=== PATIENT | male | born 1955 | race Caucasian/White ===

== ENCOUNTER → 2016-06-14 05:50 | Day surgery (SDC) | payer BC ==
--- NOTE | 2016-06-13 15:57 | HP ---
CONTINUATION ADDENDUM INCLUDED ON THIS REPORT DATE OF ADMISSION: 06/14/2016. CHIEF COMPLAINT: Right knee pain. HISTORY OF PRESENT ILLNESS: Mr. 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 Since that time, he has had 7/10 pain and swelling along the medial joint line of his right knee. He failed conservative treatment with intra-articular injection and physical therapy, as well as pain medication. MRI confirmed a large tear in the body and posterior horn of the medial meniscus. Due to the patient's continued pain, he wished to proceed with right knee arthroscopy with partial medial meniscectomy, possible chondroplasty, possible synovectomy. PAST MEDICAL HISTORY: Hypertension, past calcaneal fracture. PAST SURGICAL HISTORY: ORIF 2002 of the calcaneus fracture. CURRENT MEDICATIONS: 1. Lisinopril 10 mg p.o. daily. 2. Lortab one to two tablets p.o. q.6 hours prn for pain. ALLERGIES: No known drug allergy, no known latex allergy. FAMILY HISTORY: Paternal cancer. SOCIAL HISTORY: Patient lives with his . No tobacco or recreational drug use. Ten to twelve alcoholic beverages per week. REVIEW OF SYSTEMS: Fourteen systems were reviewed with the patient today. Positive for right knee pain and swelling. Negative for fevers, chills, chest pain, shortness of breath, nausea, vomiting, headache or dizziness. Otherwise review of systems is negative or not relevant. PHYSICAL EXAMINATION GENERAL: The patient is a well-nourished male in no apparent distress. Alert and oriented times three. Pleasant mood and appropriate affect. VITAL SIGNS: Height 5'11-1/2", weight 249 pounds, BMI 34.2. Pulse 70, blood pressure 158/92. GAIT: The patient's gait is antalgic favoring the right knee. He ambulates independently. HEENT: Atraumatic, normocephalic. Pupils equal and reactive to light. NECK: Trachea midline. Neck supple. No palpable lymph nodes. LUNGS: Clear to auscultation in all lung cortés. No wheezes, rub, or rhonchi. HEART: S1, S2. ABDOMEN: Soft, nontender, nondistended. Bowel sounds in four quadrants. EXTREMITIES: Right lower extremity: The patient's skin is intact. He has a moderate effusion at the knee joint with tenderness to palpation along the medial joint line. Positive Apley's and Beni's. 10 to 120 degrees of flexion distally. Neurovascularly intact. RADIOGRAPHS: MRI of the patient's right knee shows a tear in the body and posterior horn of the medial meniscus. Plain films of the right knee show some mild to moderate degenerative osteoarthritis. ASSESSMENT AND PLAN: Mr. De Paz is a 61-year-old gentleman scheduled for upcoming, 06/14/2016, right knee arthroscopy with partial medial meniscectomy and possible chondroplasty. He will be NPO after midnight the night before surgery. He is medically cleared for surgery. No recent illness. We shall proceed with this surgery as scheduled. Informed consent was obtained from the patient today and he wishes to proceed. [id number]/[facility] #: [id number]/[facility] #: [id number] SANTOS
--- NOTE | 2016-06-13 16:05 | HP ---
DATE OF ADMISSION: 06/14/2016. PHYSICAL EXAMINATION GAIT: The patient's gait is antalgic favoring the right knee. He ambulates independently. HEENT: Atraumatic, normocephalic. Pupils equal and reactive to light. NECK: Trachea midline. Neck supple. No palpable lymph nodes. LUNGS: Clear to auscultation in all lung cortés. No wheezes, rub, or rhonchi. HEART: S1, S2. ABDOMEN: Soft, nontender, nondistended. Bowel sounds in four quadrants. EXTREMITIES: Right lower extremity: The patient's skin is intact. He has a moderate effusion at t he knee joint with tenderness to palpation along the medial joint line. Positive Apley's and McMurr ay's. 10 to 120 degrees of flexion distally. Neurovascularly intact. RADIOGRAPHS: MRI of the patient's right knee shows a tear in the body and posterior horn of the med ial meniscus. Plain films of the right knee show some mild to moderate degenerative osteoarthritis. ASSESSMENT AND PLAN: Mr. De Paz is a 61-year-old gentleman scheduled for upcoming, 06/14/2016, [facility] knee arthroscopy with partial medial meniscectomy and possible chondroplasty. He will be NPO af ter midnight the night before surgery. He is medically cleared for surgery. No recent illness. We shall proceed with this surgery as scheduled. Informed consent was obtained from the patient doretha edmonds and he wishes to proceed. [id number]/[facility] #: [id number]
--- NOTE | 2016-06-13 19:55 | HP ---
HISTORY AND PHYSICAL: DATE OF PROCEDURE: 06/14/16 CHIEF COMPLAINT: Right knee pain. HISTORY OF PRESENT ILLNESS: Mr. De Paz is a 61-year-old gentleman with complaints of right knee pain. He has failed conservative management and he has elected to proceed with a right knee arthroscopy with partial medial meniscectomy and possible chondroplasty. Surgery is scheduled for 06/14/[address] Duran. PAST MEDICAL HISTORY: Hypertension, obesity. PAST SURGICAL HISTORY: ORIF of calcaneal fracture. CURRENT MEDICATIONS: 1. Meloxicam. 2. Lortab. 3. Lisinopril. ALLERGIES: None. FAMILY HISTORY: Cancer. SOCIAL HISTORY: This is a 61-year-old gentleman. He does not smoke. He denies use of drugs or alcohol. REVIEW OF SYSTEMS: A complete 14-point review of systems is reviewed with the patient, all is negative and noncontributory. PHYSICAL EXAMINATION GENERAL: He is a 61-year-old obese male, in no acute distress. VITAL SIGNS: He stands 6 feet 1 inch tall, weighs 250 pounds. His blood pressure is 158/92 and his heart rate is 70. HEENT: Normocephalic, atraumatic. NECK: Supple. No palpable lymph nodes. Trachea is midline. PULMONARY: The lungs are clear to auscultation bilaterally. No wheezes, rhonchi, or rales. CARDIOLOGIC: Regular rate and rhythm. Strong S1, S2. No murmurs, gallops, or rubs. ABDOMEN: Soft, nontender, nondistended. NEUROLOGIC: He is alert and oriented x3. MUSCULOSKELETAL: Right lower extremity, the skin is intact. He has a mild effusion. He has some tenderness over the medial joint line. His lower extremity muscle group strengths are intact at 5/5. He has intact sensation. He has 2+ dorsalis pedis pulses. ASSESSMENT AND PLAN: Mr. De Paz is a 61-year-old gentleman with complaints of right knee pain. He is scheduled for right knee arthroscopy with partial medial meniscectomy and possible chondroplasty. The surgery is scheduled for with Dr. Duran. Dr. Duran discussed the risks and benefits of the surgery with him today and all of his questions were answered. He will follow up with Dr. Duran 10 to 14 days after the surgery. DARYA BULLARD [id number]/[facility] #: [id number] [facility] HOSPITALAnoop
[~2016-06-14 05:50] MED LIST: Buffered Lidocaine 1% SYR 3ML* 3 ML/SYR SYRINGE INTRADERM ONE; Bupivacaine 0.5% SDV PF* 30 ML VIAL ONE; Chloroprocaine 2%* 20 ML VIAL ONE; Dexamethasone IV* 4 MG/ML 1 ML (4 MG) ONE; EPINEPHrine AMP 1 MG/ML ONE; Famotidine IV* 10 MG/ML 2 ML (20 mg) IV ONE; Famotidine IV* 10 MG/ML 2 ML (20 mg) ONE; Ketorolac INJ* 30 MG/ML 1 ML VIAL ONE; Lidocaine 2% PF * 5 ML VIAL ONE; Midazolam* 1 MG/ML 2 ML VIAL (2 MG) ONE; Midazolam* 1 MG/ML 5 ML VIAL (5 MG) ONE; Morphine INJ* 2 MG/ML 1 ML CARPUJECT IV PRN; Ondansetron INJ* 2 MG/ML VIAL ONE; PROCHLORPERAZINE INJ 5 MG/ML 2 ML VIAL IV PRN; Phenylephrine INJ* 10 MG/ML 1 ML VIAL (10 MG) ONE; Propofol* 10 MG/ML 20 ML BTL IV PUSH ONE; ceFAZolin 2 GM PREMIX (*) 2 GM/50 ML BAG IVPB ONE; fentaNYL* 50 MCG/ML 2 ML VIAL (100 MCG VIAL) ONE; methylPREDNISolone ACETATE 80* 80 MG/ML 1 ML VIAL ONE; oxyCODONE/Acetamin 5/325 MG* TAB ONE; oxyCODONE/Acetamin 5/325 MG* TAB PO PRN
[2016-06-14] MEDS: fentaNYL* 50 MCG/ML 2 ML VIAL (100 MCG VIAL) IV PRN ×3 (09:10→09:28)
[2016-06-14 10:04] VITALS: BP 159/89
--- NOTE | 2016-06-15 01:55 | OP ---
DATE OF OPERATION: 06/14/16 [facility] DATE OF : 57 ATTENDING SURGEON: Constanza Duran MD DIRECTOR TRUST: DARYA Beck ANESTHESIOLOGIST: Dr. Sy. ANESTHESIA: Spinal. PRE-OP DIAGNOSES: Right knee pain with medial meniscal tear and mild osteoarthritis. POST-OP DIAGNOSES: Right knee pain with medial meniscal tear and mild osteoarthritis. OPERATIVE PROCEDURE: Right knee arthroscopy with partial medial meniscectomy and medial chondroplasty. COMPLICATIONS: None. SPECIMEN: None. EBL: Less than 25 cc. BRIEF HISTORY/INDICATION: Mr. De Paz is a 61-year-old gentleman with greater than 4 months of severe right knee pain. He had MRI confirming a medial meniscal tear and he failed conservative treatment. He had some known mild arthritis on radiographs as well, but wished to proceed with right knee arthroscopy with partial medial meniscectomy due to continued pain and decreased quality of life. Informed consent was obtained from the patient. He understood the risks of the procedure included but were not limited to bleeding, infection, damage to nearby structures, continued pain, need for further surgery, stroke, heart attack, blood clot, and . He wished to proceed. INTRAOPERATIVE FINDINGS: Intraoperatively, the patient was noted to have a complex tear involving the posterior one-third of the medial meniscus. This involved the white-red zone mainly. The patient had some grade 2 and 3 Outerbridge cartilage changes in the medial compartment along the medial femoral condyle with cartilage flapping. Some mild grade 1 and 2 cartilage changes in the patellofemoral compartment. DESCRIPTION OF PROCEDURE: Mr. De Paz was identified in the preanesthesia unit. His right lower extremity was marked as the correct operative site. Informed consent was signed and placed in the chart. The patient was taken to the operating room and placed under spinal anesthesia without difficulty. Right lower extremity was prepped and draped in the usual sterile fashion. Preop time-out was made to correctly identify the patient's side and site. Appropriate cornelius-operative antibiotics were given within 1 hour of incision. A standard 1.5 cm anterolateral portal incision was made with a 15-blade and carried down through the capsule. Trocar was introduced. As soon as the light and water sources were turned on, there was immediate visualization of the supra -patellar pouch. A tour of the knee joint was performed. Suprapatellar pouch had no obvious abnormality. Patellofemoral compartment had very mild degenerative changes with no cartilage flapping and no exposed subchondral bone. Medial gutters showed no loose body or plica. The medial compartment showed some mild cartilage flapping with grade 2 and 3 cartilage changes along the medial femoral condyle. Posterior medial meniscus had obvious tearing. ACL appeared to be intact. The knee was placed in the [id number] position. Lateral compartment showed no significant cartilage damage or meniscal tear. Under direct visualization, a medial portal incision was made with a 15-blade. Probe was introduced and a second tour of the knee joint was performed. Posteromedial meniscus had a complex-type tear with both radial and longitudinal component involving the white-red zone. Shaver and straight biter were used to perform partial medial meniscectomy. This was performed mainly in the white-red zone. Radiofrequency ablation wand was then used to further smooth the edge of the posteromedial meniscus. Probe was used to ensure that there was no additional tearing. Next, the radiofrequency ablation wand was used to smooth the edges of the cartilage flapping along the medial femoral condyle. The knee was copiously irrigated with sterile saline. All instruments were carefully removed. The incisions were closed using interrupted 3-0 nylon suture. Intra-articular injection of 80 mg Depo-Medrol and 6 cc of 0.25% Marcaine was placed in the knee joint. Sterile Xeroform, 4x4's, and Webril were used to cover the incisions. Fitz wrap and cold pack were placed over this. The patient's anesthesia was reversed without difficulty. He was taken to the PACU in stable condition. Intended weightbearing will be weightbearing as tolerated. Intended DVT prophylaxis will be aspirin for two weeks. [id number]/[facility] #: [id number] [facility]ITALD
== END | disposition home or self-care (01) ==
LOC: OR 05:50
PROVIDERS: ATTEND Orthopaedic Surgery Adult Reconstructive Orthopaedic Surgery
DX: M23.203 Derangement of unspecified medial meniscus due to old tear or injury, right knee (principal); M17.11 Unilateral primary osteoarthritis, right knee; I10 Essential (primary) hypertension
CPT/HCPCS: A9270-GY; J0171; J0690; J1040; J1100; J1885; J2250; J2400; J2405; J2704; J3010

== ENCOUNTER 2018-08-07 05:32 | Observation (INO) | payer BC ==
[~2018-08-07 05:32] MED LIST changes: -Buffered Lidocaine 1% SYR 3ML* 3 ML/SYR SYRINGE INTRADERM ONE; +Buffered Lidocaine 1% SYRIN* 1 ML/SYRINGE INTRADERM ONE; -Bupivacaine 0.5% SDV PF* 30 ML VIAL ONE; -Chloroprocaine 2%* 20 ML VIAL ONE; -Dexamethasone IV* 4 MG/ML 1 ML (4 MG) ONE; -EPINEPHrine AMP 1 MG/ML ONE; -Famotidine IV* 10 MG/ML 2 ML (20 mg) IV ONE; -Famotidine IV* 10 MG/ML 2 ML (20 mg) ONE; -Ketorolac INJ* 30 MG/ML 1 ML VIAL ONE; -Lidocaine 2% PF * 5 ML VIAL ONE; -Midazolam* 1 MG/ML 2 ML VIAL (2 MG) ONE; -Midazolam* 1 MG/ML 5 ML VIAL (5 MG) ONE; -Morphine INJ* 2 MG/ML 1 ML CARPUJECT IV PRN; -Ondansetron INJ* 2 MG/ML VIAL ONE; -PROCHLORPERAZINE INJ 5 MG/ML 2 ML VIAL IV PRN; -Phenylephrine INJ* 10 MG/ML 1 ML VIAL (10 MG) ONE; -Propofol* 10 MG/ML 20 ML BTL IV PUSH ONE; -ceFAZolin 2 GM PREMIX (*) 2 GM/50 ML BAG IVPB ONE; -fentaNYL* 50 MCG/ML 2 ML VIAL (100 MCG VIAL) ONE; -methylPREDNISolone ACETATE 80* 80 MG/ML 1 ML VIAL ONE; -oxyCODONE/Acetamin 5/325 MG* TAB ONE; -oxyCODONE/Acetamin 5/325 MG* TAB PO PRN
[2018-08-07] MEDS ORDERED: Lactated Ringers 1000 ML Bag* 1,000 ML IV SCH ×2 (06:00→11:00)
[2018-08-07] MEDS ORDERED: Famotidine IV* 10 MG/ML 2 ML (20 mg) IV ONE (06:00)
[2018-08-07] MEDS ORDERED: ceFAZolin 2 GM in NS PREMIX(*) 2 GM/100 ML BAG IVPB ONE (06:02)
[2018-08-07] MEDS ORDERED: Famotidine IV* 10 MG/ML 2 ML (20 mg) ONE (06:02)
[2018-08-07] MEDS ORDERED: Midazolam* 1 MG/ML 5 ML VIAL (5 MG) ONE (07:15)
[2018-08-07] MEDS ORDERED: Ondansetron INJ* 2 MG/ML VIAL ONE (07:15)
[2018-08-07] MEDS ORDERED: Dexamethasone IV* 4 MG/ML 1 ML (4 MG) ONE (07:15)
[2018-08-07] MEDS ORDERED: Propofol* 10 MG/ML 20 ML BTL ONE (07:15)
[2018-08-07] MEDS ORDERED: fentaNYL* 50 MCG/ML 5 ML VIAL (250 MCG VIAL) ONE (07:15)
[2018-08-07] MEDS ORDERED: Lidocaine 2% PF * 5 ML VIAL ONE (07:15)
[2018-08-07] MEDS ORDERED: Cisatracurium* 2 MG/ML MDV 5 ML ONE (07:15)
[2018-08-07] MEDS ORDERED: EPHEDrine (Pressors)* 50 MG/ML VIAL ONE (08:22)
[2018-08-07] MEDS ORDERED: Phenylephrine 40 MCG/ML SYRINGE ONE (08:26)
[2018-08-07] MEDS ORDERED: VASOPRESSIN 20 UNITS/ML 1 ML VIAL ONE (08:55)
[2018-08-07] MEDS ORDERED: HYDROmorphone INJ1* 1 MG/ML SYRINGE ONE (09:41)
[2018-08-07] MEDS ORDERED: Ondansetron INJ* 2 MG/ML VIAL IV PRN ×2 (10:12→10:20)
[2018-08-07] MEDS ORDERED: HYDROmorphone INJ1* 1 MG/ML SYRINGE IV PRN (10:12)
[2018-08-07] MEDS ORDERED: Naloxone* 0.4 MG/ML 1 ML VIAL IV PRN (10:12)
[2018-08-07] MEDS ORDERED: Acetaminophen TAB* 325 MG PO PRN (10:20)
[2018-08-07] MEDS ORDERED: Magnesium Hydroxide LIQ* 30 ML UDC PO PRN (10:20)
[2018-08-07] MEDS ORDERED: fentaNYL* 50 MCG/ML 2 ML VIAL (100 MCG VIAL) ONE (10:22)
[2018-08-07] MEDS: fentaNYL* 50 MCG/ML 2 ML VIAL (100 MCG VIAL) IV PRN ×2 (10:23→10:57)
[2018-08-07] MEDS ORDERED: Cyclobenzaprine TAB* 10 MG PO PRN (11:23)
[2018-08-07] MEDS ORDERED: HYDROcodone/ACETAMIN 5-325 MG* 1 TAB ONE (11:35)
[2018-08-07] MEDS: HYDROcodone/ACETAMIN 5-325 MG* 1 TAB PO PRN ×3 (11:36→20:06)
[2018-08-07] MEDS ORDERED: Lisinopril TAB* 5 MG PO SCH (21:00)
--- NOTE | 2018-08-07 21:24 | OP ---
DATE OF OPERATION: 08/07/18 - ROOM #353 DATE OF : 57 SURGEON: Ilir Licea MD HEALTH MANAGER: DARYA Foote. The case was done with the assistance of a surgical PA because of the complexity of the case. ANESTHESIA: General. PRE-OP DIAGNOSES: 1. Right L4-5 herniated nucleus pulposus. 2. Footdrop. POST-OP DIAGNOSES: 1. Right L4-5 herniated nucleus pulposus. 2. Footdrop. OPERATIVE PROCEDURE: The patient underwent right L4-5 MIS diskectomy with facetectomy and partial laminotomy L4 and L5. ESTIMATED BLOOD LOSS: 15 mL. COMPLICATIONS: None. SUMMARY: The patient is very pleasant 63-year-old gentleman with complaints of back pain radiating to the right lower extremity with right lower extremity weakness and footdrop with MRI findings consistent with a large right L4-5 extruded disk herniation. After failing conservative treatment modalities, he was offered the option of surgical intervention. After explaining expectations , limitations, and possible complications of the procedure to the patient and his with complications including, but not limited to bleeding, infection, risk of injury to adjacent structures, coma, paralysis, , need for additional procedures, anesthesia risks, stroke, blindness, cancer, instability , adjacent level disease, pseudoarthrosis, spinal fluid leak, injury to abdominal content, loss of bladder or bowel control, recurrence of the herniated disk, inability to improve, need for additional procedures, need for tracheostomy or gastrotomy, need for prolonged ICU stay, scar formation, the patient was agreeable to proceed with surgery and informed consent was obtained. The patient and his understood that his condition may not improve and in fact may get worse after surgery and that he may need additional procedure in the future. They also understood that the operative plan may be modified according to intraoperative findings and conditions and that the procedure may be abandoned or done in more than 1 stages. They also understood the possibility for need of prolonged ICU stay and need for tracheostomy or gastrostomy or ventilator dependence. DESCRIPTION OF PROCEDURE: The patient was brought to the operating room and was placed under general anesthesia by the anesthesia team. He was carefully positioned prone on the Iker frame on the Saran table and all bony prominences were meticulously padded. The skin was prepped and draped in the standard fashion. After appropriate surgical pause and patient identification, a small paramedian incision on the right over the L4-5 disk space was marked on the skin with the assistance of intraoperative fluoroscopic imaging. The skin incision site was infiltrated with local anesthetic. A #10 surgical blade was used to incise the skin. The incision was carried down with Bovie cautery and the dorsal fascia was incised with #10 surgical blade. Then, over a series of dilators, the tubular METRx retractor was introduced and was docked over the right L4 hemilamina and the L4-5 facet exposing the superior part of the L5 lamina. Operative microscope was brought into the field, and after exposing all the bony surfaces carefully, high-speed drill and Kerrison punches were used to fashion partial laminectomy at L4 and L5 as well as partial medial facetectomy. The ligamentum flavum was gently removed with the use of Kerrison punches and the thecal sac as well as the L5 nerve root were readily identified. The thecal sac was gently retracted medially with nerve root retractor and large bulging under the posterior longitudinal ligament was identified as expected from the preoperative imaging. A #15 surgical blade was used to perform a small opening at the posterior longitudinal ligament and significant amount of disk material was then gently removed with the use of pituitary rongeurs. At the end of the procedure, the thecal sac and the nerve root were free of any pressure phenomenon. Intraoperative fluoroscopic imaging confirmed appropriate surgical level. While the disk at L4-5 was meticulously inspected, no further disk protrusions were identified, and after copious irrigation, confirmation of meticulous hemostasis and meticulous inspection, the tubular retractor was gently removed. The wound was then closed by layers with 0 interrupted Vicryl suture to approximate the dorsal fascia and 2-0 inverted interrupted Vicryl sutures to approximate the subcutaneous tissues. The skin was then covered with Dermabond. At the end of the procedure, all counts were reported to be correct. The patient remained hemodynamically stable throughout the case. He was then turned supine, extubated and was transferred to Recovery in excellent condition. The case was done with the assistance of a surgical PA. [id number]/[facility] #: [id number] SANTOS
[2018-08-08] MEDS: HYDROcodone/ACETAMIN 5-325 MG* 1 TAB PO PRN ×2 (03:01→07:29)
--- NOTE | 2018-08-08 07:38 | PN ---
Progress Note - Progress Note Date of Service: 08/08/18 SOAP: Subjective: [S/p lumbar discectomy L4-5 right POD #1 Feeling well this morning, pre-op RLE pain improved. Right lateral foot numbness persistent Ambulating well independently Eating and drinking well Denies headache, nausea Pain well controlled with PO meds] Objective: [ Vital Signs: Temp Pulse Resp BP Pulse Ox 99.5 F 65 16 140/68 98 08/08/18 03:08 08/08/18 03:08 08/08/18 07:29 08/08/18 03:08 08/08/18 03:08 General: Alert, comfortable supine in bed Neuro: Mild right lateral foot numbness, right EHL 4/5 but possibly secondary to previous foot surgery Incision: Intact, no swelling, erythema ] Assessment: [Satisfactory post-op] Plan: [1. Discharge home today 2. Discharge instructions discussed]
[2018-08-08 07:59] VITALS: BP 146/66
[2018-08-08] MEDS ORDERED: Atorvastatin* 10 MG TAB PO SCH (09:00)
--- NOTE | 2018-08-08 22:25 | DS ---
DISCHARGE SUMMARY: DATE OF ADMISSION: 08/07/18 DATE OF DISCHARGE: 08/08/18 ADMISSION DIAGNOSES: 1. Degenerative disk disease. 2. Herniated nucleus pulposus. DISCHARGE DIAGNOSES: 1. Degenerative disk disease. 2. Herniated nucleus pulposus. PROCEDURE: The patient underwent a right L4-5 MIS diskectomy with facetectomy and partial laminotomy L4 and L5. DISPOSITION: Home. CONDITION AT DISCHARGE: Good. HOSPITAL COURSE: The patient is a very pleasant 63-year-old gentleman with complaints of back pain r adiating to the right lower extremity with right lower extremity weakness and right footdrop with MRI findings consistent with a large right L4-5 extruded disk fragment. After failing conservative moises tment modalities, he was offered the option of surgical intervention. He underwent the above procedu re. He tolerated the procedure well. He was able to be extubated and was transferred to the floor. On postoperative day #1, the patient was able to tolerate p.o. He was ambulating and had good pain c ontrol with p.o. medication while his preoperative symptoms have almost completely resolved. He was found to be ready for discharge home. Full instructions were given. [id number]/[facility] #: [id number]
== END 2018-08-08 10:42 | disposition home or self-care (01) ==
LOC: OR 05:32 → SSU 10:21
PROVIDERS: ADMIT Neurological Surgery; ATTEND Neurological Surgery
DX: M51.26 Other intervertebral disc displacement, lumbar region (principal); M51.16 Intervertebral disc disorders with radiculopathy, lumbar region; M21.379 Foot drop, unspecified foot; M79.661 Pain in right lower leg
CPT/HCPCS: 76000; 96374; 96375; 96376; A9270-GY; G0378; J0690; J1100; J1170; J2250; J2405; J2704; J3010

== ENCOUNTER → 2018-10-16 13:49 | Day surgery (SDC) | payer BC ==
[~2018-10-16 13:49] MED LIST changes: +Bupivacaine 0.5%* 50 ML VIAL ONE; +Dexamethasone IV* 4 MG/ML 1 ML (4 MG) ONE; +EPHEDrine (Pressors)* 50 MG/ML VIAL ONE; +Famotidine IV* 10 MG/ML 2 ML (20 mg) IV ONE; +Famotidine IV* 10 MG/ML 2 ML (20 mg) ONE; +Ketorolac INJ* 30 MG/ML 1 ML VIAL ONE; +Lactated Ringers 1000 ML Bag* 1,000 ML IV SCH; +Lidocaine 2% PF * 5 ML VIAL ONE; +Midazolam* 1 MG/ML 5 ML VIAL (5 MG) ONE; +Naloxone* 0.4 MG/ML 1 ML VIAL IV PRN; +Ondansetron INJ* 2 MG/ML VIAL IV PRN; +Ondansetron INJ* 2 MG/ML VIAL ONE; +Propofol* 10 MG/ML 20 ML BTL ONE; +Vancomycin(*) 1,500 MG in NS 0.9% 250 ML* 250 ML IVPB ONE; +fentaNYL* 50 MCG/ML 2 ML VIAL (100 MCG VIAL) IV PRN; +fentaNYL* 50 MCG/ML 2 ML VIAL (100 MCG VIAL) ONE; +oxyCODONE/Acetamin 5/325 MG* TAB ONE; +oxyCODONE/Acetamin 5/325 MG* TAB PO PRN
--- NOTE | 2018-10-16 16:03 | HP ---
PREOPERATIVE HISTORY AND PHYSICAL: DATE OF SURGERY/ADMISSION: 10/16/18 DATE OF OFFICE VISIT/ENCOUNTER: 10/16/18 ATTENDING SURGEON: Savannah Jesus MD* (dictated by DARYA Kwok). PROCEDURE: Incision and drainage, olecranon bursectomy, left elbow. HISTORY OF PRESENT ILLNESS: This is a 63-year-old male who has had painful lump /olecranon bursitis on the posterior aspect of his left elbow, ongoing for a couple of weeks. He has had a long history of olecranon bursitis. There was no injury that he recalls. He was seen in the office by Dr. Jesus approximately 1 week ago and started on a course of Keflex. He was also wearing a compression ARDEN. Unfortunately, his symptoms have worsened over the past week. He is feeling an increase in pain along with swelling and erythema. He has also had some swelling travel down to his hand. He is experiencing decreased range of motion in his elbow secondary to the pain. He denies any fevers. In addition to a history of olecranon bursitis in his elbow, he has a history of gout for which he takes allopurinol. After evaluation in clinic today, Dr. Jesus is recommending surgical intervention in the form of an incision and drainage and olecranon bursectomy for the left elbow. The patient has consented to proceed. PAST MEDICAL HISTORY: 1. Hypertension. 2. Hypercholesterolemia. 3. Gout. PAST SURGICAL HISTORY: 1. Spine surgery, lumbar diskectomy. 2. Right knee surgery. 3. Right heel open reduction internal fixation. CURRENT MEDICATIONS: 1. Allopurinol 300 mg daily. 2. Lisinopril 10 mg daily. 3. Rosuvastatin calcium 5 mg daily. ALLERGIES: No known drug allergies. FAMILY MEDICAL HISTORY: Cancer. 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 He denies tobacco use and recreational drug use. He has previously drank alcohol with some regularity, but he has not in approximately 3 months. REVIEW OF SYSTEMS: Negative for general, cephalic, cardiovascular, respiratory , GI, , other musculoskeletal, integumentary, endocrine, neurologic, and hematologic symptoms. Infectious Disease: Negative for MRSA, hepatitis C, HIV. PHYSICAL EXAMINATION GENERAL: Well-developed, well-nourished 63-year-old male, in no acute distress. VITAL SIGNS: Height 5 feet 11 inches, weight 206 pounds, blood pressure 142/82 , and pulse rate 67. HEENT: Normocephalic, atraumatic. Pupils are equal, round and reactive to light and accommodation. Extraocular movements are intact. NECK: Supple. No palpable lymph nodes. Throat is clear. PULMONARY: Lungs are clear to auscultation bilaterally. No wheezes, rales or rhonchi. CARDIOVASCULAR: Regular rate and rhythm. S1, S2. No murmurs, rubs or gallops. No edema. ABDOMEN: Positive bowel sounds. Soft and nontender. MUSCULOSKELETAL: On exam of his left elbow, he has a large olecranon bursitis and decreased range of motion of the elbow in both flexion and extension. There is some swelling in his hand. The erythema from posterior aspect of his elbow extending laterally. There is mild warmth to the touch. Skin is intact. Neurovascular function is intact to the left upper extremity. NEUROLOGIC: Alert and oriented x3. Cranial nerves II through XII are intact. Sensation is intact to light touch. DIAGNOSTIC STUDIES/LAB DATA: X-rays of the left elbow show a large olecranon spur. IMPRESSION: Left olecranon bursitis which is infected. PLAN: The patient is scheduled to undergo an incision and drainage, olecranon bursectomy of left elbow with Dr. Jesus on 10/16/18. He will return to the office 4 days for followup and drain removal. A prescription for [place] was e- scribed to the patient's pharmacy for postoperative pain management. DARYA KWOK [id number]/[facility] #: [id number] [facility]ANTOS
[2018-10-16 19:09] VITALS: BP 150/84
--- NOTE | 2018-10-16 21:50 | OP ---
DATE OF OPERATION: 10/16/18 - [facility] DATE OF : 57 SURGEON: Savannah Jesus MD NET APPLICATIONS DEVELOPER: DARYA Bragg ANESTHESIA: General. PRE-OP DIAGNOSIS: Septic olecranon bursitis of the left elbow. POST-OP DIAGNOSIS: Gouty tophus, left elbow. OPERATIVE PROCEDURE: Removed gouty tophus and I and D of the left elbow. ESTIMATED BLOOD LOSS: Zero. TOURNIQUET TIME: 34 minutes. INDICATION FOR PROCEDURE: Man is a 63-year-old man who has persistent left elbow pain and swelling for the past week, it did not respond to oral antibiotics. He presents for I and D of the left elbow. OPERATIVE FINDINGS: The patient was found to have a large gouty tophus, which was inflamed, but there was no purulent material. The gouty tophus was removed. DESCRIPTION OF PROCEDURE: The patient was brought to the operating room, was given a general anesthetic and placed in the supine position on the operating table with a tourniquet around his left upper arm. Skin of his left upper extremity was prepped and draped in the usual sterile fashion. The upper extremity was exsanguinated and the tourniquet elevated to 250 mmHg. A longitudinal incision was made slightly lateral on the posterior aspect of the elbow overlying the mass. We dissected through the subcutaneous tissue, carefully elevating the skin flaps away from the mass. It appeared to be a gouty tophus. There was no purulent material. We carefully dissected off of the distal ulna. There was a large osteophyte and this was removed with a rongeur. The wound was irrigated copiously with saline and the subcutaneous tissue was closed over a Gurwinder drain with 2-0 Vicryl suture. The skin edges were reapproximated with roz. The wound was dressed with Xeroform, 4x4, ABD , and an Fitz wrap. The patient tolerated the procedure well and was brought to the recovery room in good condition. [id number]/[facility] #: [id number] [facility]
== END | disposition home or self-care (01) ==
LOC: OR 13:49
PROVIDERS: ATTEND Orthopaedic Surgery
DX: M1A.0221 Idiopathic chronic gout, left elbow, with tophus (tophi) (principal); M25.722 Osteophyte, left elbow; I10 Essential (primary) hypertension
CPT/HCPCS: 88304; A9270-GY; J1100; J1885; J2250; J2405; J2704; J3010; J3370; J3490

== ENCOUNTER 2020-06-21 06:31 | Inpatient (IN) ==
[~2020-06-21 06:31] MED LIST changes: +Buffered Lidocaine 1% SYRIN 1 ml INTRADERM ONE; -Buffered Lidocaine 1% SYRIN* 1 ML/SYRINGE INTRADERM ONE; -Bupivacaine 0.5%* 50 ML VIAL ONE; +Dexamethasone IV 4 MG/ML VIAL 1 ml VIAL IV SLOW PU ONE; -Dexamethasone IV* 4 MG/ML 1 ML (4 MG) ONE; -EPHEDrine (Pressors)* 50 MG/ML VIAL ONE; +Famotidine IV 10 MG/ML 2 ml VIAL (20 mg) IV ONE; -Famotidine IV* 10 MG/ML 2 ML (20 mg) IV ONE; -Famotidine IV* 10 MG/ML 2 ML (20 mg) ONE; -Ketorolac INJ* 30 MG/ML 1 ML VIAL ONE; -Lactated Ringers 1000 ML Bag* 1,000 ML IV SCH; +Lactated Ringers 1000 ml BAG 1,000 ML IV SCH; -Lidocaine 2% PF * 5 ML VIAL ONE; -Midazolam* 1 MG/ML 5 ML VIAL (5 MG) ONE; -Naloxone* 0.4 MG/ML 1 ML VIAL IV PRN; -Ondansetron INJ* 2 MG/ML VIAL IV PRN; -Ondansetron INJ* 2 MG/ML VIAL ONE; -Propofol* 10 MG/ML 20 ML BTL ONE; -Vancomycin(*) 1,500 MG in NS 0.9% 250 ML* 250 ML IVPB ONE; -fentaNYL* 50 MCG/ML 2 ML VIAL (100 MCG VIAL) IV PRN; -fentaNYL* 50 MCG/ML 2 ML VIAL (100 MCG VIAL) ONE; -oxyCODONE/Acetamin 5/325 MG* TAB ONE; -oxyCODONE/Acetamin 5/325 MG* TAB PO PRN
[2020-06-21] MEDS ORDERED: Famotidine IV 10 MG/ML 2 ml VIAL (20 mg) ONE (07:00)
[2020-06-21] MEDS ORDERED: ceFAZolin 2 GM PREMIX 2 GM/50 ML BAG ONE (07:00)
[2020-06-21] MEDS ORDERED: Dexamethasone IV 4 MG/ML VIAL 1 ml VIAL ONE (07:00)
[2020-06-21] MEDS ORDERED: Midazolam 5 mg/5 ml VIAL 1 mg/ml 5 ml VIAL (5 mg) ONE (07:09)
[2020-06-21] MEDS ORDERED: Bupivacaine 0.5% SDV PF 30ML VIAL ONE (07:14)
[2020-06-21] MEDS ORDERED: ROPIVACAINE 5 MG/ML 30 ML BTL (0.5%) ONE (07:21)
[2020-06-21] MEDS ORDERED: fentaNYL 100 mcg/2 ml 50 MCG/ML VIAL ONE ×2 (07:26→12:10)
[2020-06-21] MEDS ORDERED: fentaNYL 100 mcg/2 ml 50 MCG/ML VIAL IV PRN (07:59)
[2020-06-21] MEDS ORDERED: HYDROmorphone 1 MG/1 ML SYRINGE IV PRN (07:59)
[2020-06-21] MEDS ORDERED: Naloxone 0.4 mg VIAL 0.4 mg/ml 1 ml VIAL IV PRN (07:59)
[2020-06-21] MEDS ORDERED: DiMENhydriNATE IV 50 mg/ml 1 ml VIAL IV PUSH PRN (07:59)
[2020-06-21] MEDS ORDERED: Phenylephrine IV 10 MG/ML 1 ml VIAL ONE (09:00)
[2020-06-21] MEDS ORDERED: Propofol 10 MG/ML 20 ML BTL ONE ×5 (09:00→11:14)
[2020-06-21] MEDS ORDERED: Ondansetron 4 mg VIAL 2 MG/ML 2 ml VIAL ONE (09:00)
[2020-06-21] MEDS ORDERED: Magnesium Hydroxide LIQ 30 ML UDC PO PRN (09:42)
[2020-06-21] MEDS ORDERED: Ondansetron 4 mg VIAL 2 MG/ML 2 ml VIAL IV PRN (09:42)
[2020-06-21] MEDS ORDERED: Lactulose 30 ml UDC PO PRN (09:42)
[2020-06-21] MEDS ORDERED: Ondansetron ODT 4 mg TAB 4 MG TAB PO PRN (09:42)
[2020-06-21] MEDS ORDERED: oxyCODONE/Acetamin 5/325 mg TAB PO PRN (09:42)
[2020-06-21] MEDS ORDERED: Morphine 2 MG/ML SYRINGE IV PRN (09:42)
[2020-06-21] MEDS ORDERED: diPHENhydraMINE 25 mg TAB PO PRN (09:42)
[2020-06-21] MEDS ORDERED: diPHENhydraMINE IV 50 MG/ML 1 ml VIAL (BENADRYL) IV PRN (09:42)
[2020-06-21] MEDS ORDERED: Lactated Ringers 1000 ml BAG 1,000 ML IV SCH (10:00)
[2020-06-21] MEDS ORDERED: ceFAZolin 1 GM ADVAN 1 GM in NS 0.9% 50 ML 50 ML IVPB SCH (16:00)
[2020-06-21 16:49] VITALS: BP 163/82
[2020-06-21] MEDS ORDERED: Magnesium Hydroxide LIQ 30 ML UDC PO SCH (21:00)
[2020-06-22] MEDS ORDERED: Vitamin THERAPEUTIC TAB PO SCH (09:00)
== END 2020-06-21 18:25 | disposition home or self-care (01) | DRG 302 ==
LOC: AA 06:31 → SSU 12:32
PROVIDERS: ADMIT Orthopaedic Surgery Adult Reconstructive Orthopaedic Surgery; ATTEND Orthopaedic Surgery Adult Reconstructive Orthopaedic Surgery